=== PATIENT | female | born 1990 ===

== ENCOUNTER 2023-11-02 15:14 | Outpatient (REF) | payer MEDICAID, SELFPAY | END 2023-11-02 15:15 | disposition home or self-care (01) | LOC: HO.MAMMO 15:14 | PROVIDERS: PCP Family Medicine; Visit Provider Family Medicine | DX: Z13.89 Encounter for screening for other disorder (principal) ==

== ENCOUNTER 2023-11-03 10:55 | Outpatient (REF) | payer MEDICAID, SELFPAY ==
--- NOTE | ~2023-11-03 | XR_ITS ---
EXAMINATION: XR SHOULDER, LEFT CLINICAL INFORMATION: Acute left shoulder pain, non-traumatic. COMPARISON: None available. TECHNIQUE: 5 views of the left shoulder. FINDINGS: Minimal degenerative changes with hypertrophic change in the acromioclavicular joint. Glenohumeral alignment preserved. No abnormal soft tissue calcifications identified adjacent to the humeral head. There are 2 rounded, well-circumscribed opacities overlying the superficial soft tissues of the axillary region, best appreciated on the axial views, possibly external to the patient, and recommend correlation with the clinical exam for confirmation. XR/XR shoulder LT min 2V IMPRESSION: Minimal degenerative changes in the acromioclavicular joint.
== END 2023-11-03 10:56 | disposition home or self-care (01) ==
LOC: HO.HHCX 10:55
PROVIDERS: Visit Provider Family Medicine
DX: M25.512 Pain in left shoulder (principal)
CPT/HCPCS: 73030

== ENCOUNTER 2023-11-06 10:47 | Outpatient (REF) | payer MEDICAID, SELFPAY ==
--- NOTE | ~2023-11-06 | US_ITS ---
EXAMINATION: MM DIAGNOSTIC DIGITAL BREAST TOMOSYNTHESIS, BILATERAL US BREAST LIMITED, LEFT MAMMOGRAPHY: CLINICAL INFORMATION: 33-year-old female complaining of left breast pain which radiates to left shoulder and upper arm. COMPARISON: Mammography: None. Baseline exam. TECHNIQUE: Digital breast tomosynthesis is performed in both the craniocaudal and mediolateral oblique views along with computer-aided detection (CAD). Synthesized 2D images are generated from the tomosynthesis. FINDINGS: The breasts are heterogeneously dense, which may obscure small masses (ACR BI-RADS breast composition Category c). There are no suspicious masses, suspicious grouped calcifications, or areas of architectural distortion in either breast. The parenchymal pattern is stable from prior exams. Specifically, no abnormalities identified in the left superior breast to explain pain. No skin or axillary abnormalities. ULTRASOUND: CLINICAL INFORMATION: As above. COMPARISON: None. Baseline. TECHNIQUE: Targeted sonographic evaluation left breast was performed using a high frequency linear transducer. Left breast was scanned from the 9:00 to the 3:00 axis, covering the entire top half. Selected archived documentation. FINDINGS: LEFT BREAST: There is a mixture of fatty and fibroglandular tissue. No suspicious mass is seen. There is no pathologic acoustic shadowing. There is no cystic abnormality. There is no sonographic abnormality in the region of breast pain. US/US breast LT limited mamm only IMPRESSION: There are no findings suspicious for malignancy in either breast. Area of left superior breast pain shows no correlating ultrasonographic or mammographic abnormality. Recommend clinical management. Otherwise, recommend the patient resume screening mammography at age 39. OVERALL ASSESSMENT: Mammography: BI-RADS 1 - Negative Ultrasound: BI-RADS 1 - Negative RECOMMENDATION: 1. Patient should be managed based on the clinical impression. 2. Otherwise, routine annual screening mammography.-Beginning at age 40 Results were provided to the patient at time of visit by the technologist, with the use of computer based interpretation system.
== END 2023-11-06 10:48 | disposition home or self-care (01) ==
LOC: HO.MAMMO 10:47
PROVIDERS: PCP Family Medicine; Visit Provider Family Medicine
DX: N64.4 Mastodynia (principal)
CPT/HCPCS: 76642; 77062; 77066

== ENCOUNTER → 2023-11-06 11:30 | Outpatient (BNV) | payer MEDICAID, SELFPAY | PROVIDERS: PCP Family Medicine; Visit Provider Radiology Diagnostic Radiology | DX: N64.4 Mastodynia (principal) | CPT/HCPCS: 76642; 77062; 77066 ==

== ENCOUNTER 2025-03-14 15:45 | Outpatient (REF) | payer MEDICAID, SELFPAY ==
[2025-03-14 17:02] LABS: MANUAL DIFF FLAG NO
[2025-03-14 17:22] LABS: Basophils Percent Auto 0.6 % (0-2); Eosinophils Absolute Auto 0.1 X10*3/uL (0.0-0.4); Eosinophils Percent Auto 1.1 % (0-4); Hematocrit 35.2 % (37.0-47.0); Hemoglobin 11.1 g/dl (12.0-16.0); Imm Gran Abs Auto 0.02 X10*3/uL (0.00-0.03); Imm Gran Pct Auto 0.3 % (0.0-0.4); Lymphocytes Absolute Auto 2.2 X10*3/uL (1.2-4.9); Lymphocytes Percent Auto 30.3 % (20-40); Mean Corpuscular HGB Conc 31.5 g/dl (31.0-35.0); Mean Corpuscular Hemoglobin 26.6 pg (27.0-33.0); Mean Corpuscular Volume 84.2 fL (80.0-98.0); Mean Platelet Volume 10.4 fL (9.4-12.3); Monocytes Absolute Auto 0.6 X10*3/uL (0.1-1.2); Monocytes Percent Auto 7.6 % (2-11); Neutrophils Absolute Auto 4.4 x10*3/uL (2.0-8.3); Neutrophils Percent Auto 60.1 % (45-73); Platelet Count 283 X10*3/uL (160-400); Red Blood Count 4.18 X10*6/uL (4.20-5.50); Red Cell Distribution Width 15.2 % (11.0-16.0); White Blood Count 7.3 X10*3/uL (4.8-10.8)
[2025-03-14 17:25] LABS: Estimated Average Glucose 128 mg/dL; Hemoglobin A1c % 6.1 % (<6.0)
[2025-03-14 17:43] LABS: Alanine Aminotransferase 16 U/L (0-31); Albumin Level 4.3 g/dL (3.5-5.0); Anion Gap 10 (12-20); Aspartate Amino Transferase 21 U/L (5-31); Bilirubin Total 0.2 mg/dL (0.0-1.0); Blood Urea Nitrogen 8 mg/dL (9-16); Calcium 9.7 mg/dL (8.4-10.2); Carbon Dioxide 23 mmol/L (22-29); Chloride 104 mmol/L (96-108); Estimated Glomerular Filt Rate > 60; Glucose Random 123 mg/dL (60-115); Potassium 3.8 mmol/L (3.3-5.1); Sodium 133 mmol/L (135-145); Total Protein 7.6 g/dL (6.5-8.0)
[2025-03-14 17:54] LABS: Alkaline Phosphatase 61 U/L (39-117)
[2025-03-16 03:39] LABS: HIV AB/AG Nonreactive (Nonreactive); HIV Num 1 0.06 S/CO (0.00-0.99); ~HepC Num1 0.09 S/CO (0.00-0.79); ~Hepatitis C Antibody Nonreactive (Nonreactive)
[2025-03-16 17:28] LABS: RPR Rapid Plasma Reagin NON-REACTIVE (NON-REACTIVE)
== END 2025-03-14 15:46 | disposition home or self-care (01) ==
LOC: HO.HHCL 15:45
PROVIDERS: Visit Provider Nurse Practitioner Primary Care
DX: R42 Dizziness and giddiness (principal); Z32.01 Encounter for pregnancy test, result positive
CPT/HCPCS: 36415; 76801; 80053; 83036; 84702; 85025; 86592; 86803; 87389

== ENCOUNTER 2025-03-14 16:27 | Outpatient (REF) | payer MEDICAID, SELFPAY ==
--- NOTE | ~2025-03-14 | US_ITS ---
CLINICAL HISTORY: bleeding in early US OB 1st trimester transabdominal Comparison: None Findings: Single intrauterine . CRL: 2.5 cm. EGA: 9 weeks and 2 days. JUAN FRANCISCO: 10/15/2026. Previously established gestational age: Not available. Normal yolk sac. Cardiac activity: 183 bpm. No subchorionic bleed. 2 x 1.5 x 1.9 cm fundal uterine fibroid. 1.2 x 0.9 x 1.2 cm posterior uterine fibroid. 2.1 x 1.4 x 2 cm cyst in the left ovary. Right ovary 2.2 x 1.1 x 2.1 cm Left ovary 4 x 2.4 x 3.3 cm IMPRESSION: Single intrauterine estimated 9 weeks and 2 days gestational age by today's ultrasound criteria. This document has been electronically signed by: Kimani Mora MD on 03/14/2025 17:52:35
== END 2025-03-14 16:28 | disposition home or self-care (01) ==
LOC: HO.US 16:27
PROVIDERS: PCP Family Medicine; Visit Provider Nurse Practitioner Primary Care
DX: Z13.89 Encounter for screening for other disorder (principal)
CPT/HCPCS: 76801

== ENCOUNTER → 2025-03-14 16:37 | Outpatient (BNV) | payer MEDICAID, SELFPAY | PROVIDERS: PCP Family Medicine; Visit Provider Nuclear Medicine | DX: O34.11 Maternal care for benign tumor of corpus uteri, first trimester (principal); O20.9 Hemorrhage in early pregnancy, unspecified; Z3A.09 9 weeks gestation of pregnancy | CPT/HCPCS: 76801 ==